=== PATIENT | male | born 1975 | race Two or more races ===

== ENCOUNTER 2021-11-17 23:10 | Emergency (ER) | payer MEDICAID, OTHER ==
[~2021-11-17] VITALS: Ht 177.8 cm; Wt 81.6 kg
--- NOTE | 2021-11-17 23:20 | NUR ---
TO ER BED 15. BIBRA39 FOR METH USE. AAOX3. AMBULATORY. BREATHING IS EVEN AND UNLABORED. CONNECTED TO MONITOR. AWAITING MD FIGUEROA
--- NOTE | 2021-11-17 23:47 | NUR ---
URINAL PROVIDED TO PT
[2021-11-18 00:16] LABS: BASOPHILS # (AUTO) 0.1 K/uL (0.0-0.2); BASOPHILS % (AUTO) 0.4 % (0.0-2.0); HEMATOCRIT 45 % (39-51); HEMOGLOBIN 15.6 g/dL (13.5-17.5); LYMPHOCYTES # (AUTO) 2.3 K/uL (0.8-4.8); LYMPHOCYTES % (AUTO) 11.1 % (20.0-44.0); MEAN CORPUSCULAR HGB CONC 35 g/dl (31.0-36.0); MEAN CORPUSCULAR VOLUME 89 fL (80-96); MONOCYTES # (AUTO) 2.4 K/uL (0.1-1.30); MONOCYTES % (AUTO) 11.7 % (2.0-12.0); NEUTROPHILS % (AUTO) 76.8 % (43.0-81.0); PLATELET COUNT (AUTO) 172 K/uL (150-450); RED BLOOD CELL COUNT(AUTO) 5.05 MIL/uL (4.5-6.0); WHITE BLOOD COUNT (AUTO) 20.9 K/uL (4.3-11.0)
[2021-11-18 00:39] LABS: ALANINE AMINOTRANSFERASE 94 U/L (12-78); ALBUMIN 4.5 g/dL (3.4-5.0); ALKALINE PHOSPHATASE 57 U/L (46-116); ASPARTATE AMINOTRANSFERASE 177 U/L (15-37); BILIRUBIN,DIRECT 0.2 mg/dL (0.0-0.2); BILIRUBIN,TOTAL 1.7 mg/dL (0.2-1.0); CALCIUM, SERUM 8.9 mg/dL (8.5-10.1); CARBON DIOXIDE 26 mmol/L (21-32); CHLORIDE 111 mmol/L (98-107); CREATININE 1.5 mg/dL (0.6-1.3); GLUCOSE 124 mg/dL (74-106); SODIUM SERUM 149 mmol/L (136-145); TOTAL PROTEIN, SERUM 8.3 g/dL (6.4-8.2); UREA NITROGEN, BLOOD 49 mg/dL (7-18)
[2021-11-18 00:57] LABS: ACETAMINOPHEN < 2 ug/ml (10-30); ALCOHOL, BLOOD < 3 mg/dL (0-0)
[2021-11-18 01:10] LABS: BILIRUBIN,URINE NEGATIVE (NEGATIVE); COLOR,URINE YELLOW (YELLOW); LEUKOCYTE ESTERASE ,URINE NEGATIVE (NEGATIVE); NITRITE, URINE NEGATIVE (NEGATIVE); PROTEIN,URINE 100 mg/dl (NEGATIVE); UGLUCOSE NEGATIVE (NEGATIVE); UROBILINOGEN,URINE 0.2 EU/dL (0.2)
[2021-11-18] MEDS ORDERED: LORAZEPAM 0.5 MG TABLET ONE (01:29)
[2021-11-18] MEDS ORDERED: LORAZEPAM 0.5 MG TABLET PO ONE (01:30)
[2021-11-18] MEDS ORDERED: IV NS 0.9% 1,000 ML BAG IV ONE ×3 (01:30→05:00)
[2021-11-18 01:31] LABS: RBC,URINE 51-80 /HPF (0-2); WBC,URINE 0-2 /HPF (0-3)
[2021-11-18 01:32] LABS: BACTERIA,URINE Few /HPF (None Seen); SQUAMOUS EPITHELIAL CELL,UR Rare /HPF (None Seen)
--- NOTE | 2021-11-18 01:44 | NUR ---
PT PULLED OUT IV LINE. SITE CLEANED AND PRESSURE MAINTAINED. MADE AWARE
--- NOTE | 2021-11-18 05:44 | NUR ---
PT CONTINIOUSLY PULLING HIS IV OUT. PT REFUSED FLUIDS.
[2021-11-18 06:43] LABS: CREATININE 1.1 mg/dL (0.6-1.3)
--- NOTE | 2021-11-18 10:45 | NUR ---
SS consult: SS Consult requested for drug abuse. The pt. is a 46-year-old male patient who came in to ED due to detoxing. Upon SS consult, the pt. is Alert & Oriented x 4 and makes poor eye contact. The pt. appears disheveled and remains calm & cooperative. Pt. denies SI/HI and denies visual hallucinations. Pt. stated he is having some auditory hallucinations (not commanding voices). The pt.'s thought process and thought content are WNL. The pt. has Depressed mood & flat affect. Pt.'s speech is WNL. RICARDO explored pt.'s living situation. Patient stated that he lives with his brother at [[id number] [place] [address]; [phone]]. SW explored pt.'s mental health Hx. Patient states he has been diagnosed with anxiety in the past and is prescribed Wellbutrin. SW explored pt.'s drug & ETOH use. Pt. states he uses Meth about once a month and alcohol occasionally. This delinquency prevention social worker provided support with motivational interviewing, along with education regarding drug & alcohol dependence, brief intervention and referral to treatment. Patient refused referral to a rehab but accepted the resources and stated he would seek treatment if he feels he needs it later. Pt. stated he is employed and is normally able to maintain a job. Per pt. he is ambulatory and independent with all his ADL's. RICARDO explored pt.'s support system. Pt. states his brother is his support system. Plan: SW provided pt. with addiction resources and pt. accepted them. Pt. stated he left his vehicle at [facility] and wants to try to get his car upon discharge. Per pt. he will then return home[[id number] [facility] [address]; [phone]]. ADDICTION RESOURCES For Drugs and Alcohol [facility] sober living Referrals For Rehabilitation once sober Address:[address] [place] [address] [facility] [address] [place] [address] Detox/residential [facility] Substance Abuse Helpline ([facility]) Outpatient, residential treatment, recovery support for youth/adults [facility] www.[facility] hospitalounseling.Redbooth [facility] [place] Teen programs for drug/alcohol education and support Min Connolly [place]. Program for adults, sliding scale provides support and education [facility] www.DigilabHead Held Highation.org [place]; Detox/residential treatment programs; transition to sober living [facility] www.cri-help.org [place]; Outpatient and residential treatment programs; transition to sober living [facility] TEL: [phone] I-ADARP [facility] [place] [facility] Skinny [place]; Outpatient education and supportive programs for teens and adults [facility] www.[facility]rec[facility].org [place]; Residential treatment and work program for females only [facility] www.[facility].Grasswire [place]: Outpatient/residential treatment program for teens and young adults [facility] www.legacy health.org [facility] Detox, inpatient, outpatient for adults and youth [facility], [facility]. [facility]; Outpatient programs and referrals to community residential programs. Alcoholics Anonymous -SFV information and meeting and scheduleswww.aa-intergroup.org Rahat https://al-anojaziel.org/ [place] support groups for family of alcoholics. Marijuana Anonymous www.madistrict6.org -sfv listing of meetings Narcotics Anonymous www.na.org SOBER LIVING RESOURCES [facility] www.soberhousing.net A non-profit agency that provides resources to recovery and sober living homes throughout [facility] Men's Sober Living Homes: A Work in ProgressBrad Josue Jenkins Recovery [facility]oc[facility], [facility] Women's Sober Living Homes: [facility] x [address]11 My New LIZ S[facility]chez [facility] Coed Sober Living Homes: [facility] Counseling--Outpatient [facility] [address] [place] [address] [place] [address] (Specializes in in-depth psychotherapy for emotional distress: anxiety, depression, interpersonal conflicts, life transitions, childhood abuse) [facility] [address] [place] [address] (Assist with solving problem marital difficulties, separation & divorce, aging parents, & grief, chronic & terminal illness) [facility] [address] [place] [address] (Deal with loss & grief, anxiety, marital difficulties) Homebound/Mental Health Services [address] [facility] [place] [address] (Provide in-home mental services to people who are incapable of leaving their homes) [facility] for Needs of the Elderly Senior Service/Resource Center [address] [place] [address] [facility] [address] [place] [address] Mental Health Services Sandra [place] [address] [place] [address] Services: Outpatient therapy for children, teens, young adults, adults, older adults, and families; Psychiatric services, medication support Psychiatric Outpatient Services [facility] Partial Hospitalization and Intensive Outpatient Program (Managed Care and [place] Only)[address] [facility]. [facility] [phone] [facility] Partial Hospitalization and Outpatient [address] [place], [place] [phone] [facility] Mental Health Center [id number] [facility]. [address] [place], [place] [phone] [facility] Partial Hospitalization and Outpatient Lxzypea43169 Shaye Ferraro, [phone] Crisis and Hotline Telephone Numbers 24-Hour service unless stated [place] Crisis Hotlines: [facility] Mental Health/Crisis Line........471.361.1062 Suicide Prevention Center (24 Hours).......[phone] Suicide Prevention Crisis Center.......[phone] (24 Hours) Assaults Against Women Hotline.........771.221.6720 (24 Hours -- [facility]) Women and Children Crisis Senior Living...........[phone] (24 Hours) Child Abuse Hotline............810.199.6664 [facility] (24 Hours)..........[phone] Alcoholics Anonymous (24 Hours)..........[phone] Cocaine Anonymous (24 Hours)............213.188.2339 Narcotics Anonymous (24 Hours)..........[phone] [address] [facility] [address], [place], [place] [address]
--- NOTE | 2021-11-18 10:53 | NUR ---
COVID TEST COLLECTED AND SENT
--- NOTE | 2021-11-18 12:35 | NUR ---
REGGIE FROM [facility] CALLED REGARDING PT COVID STATUS. WAS NOTIFIED THAT WE WILL RECIEVE A CALL BACK WITH PT BED AND ETA FOR TRANSPORT
--- NOTE | 2021-11-18 13:16 | NUR ---
PER JEANETTE PT WILL BE GOIG TO [facility] [phone] REPORT [phone] REYES SHARMA TRANSPORTATION WILL BE HERE AT 1433
--- NOTE | 2021-11-18 14:07 | NUR ---
GAVE REPORT TO MARCO FOR RANJITH [phone]
[2021-11-18 15:35] VITALS: BP 115/73
--- NOTE | 2021-11-18 15:36 | NUR ---
[facility] TRANSPORT[facility] ARRIVED, REPORT GIVEN TO SENIOR BRANCH MANAGER, PT TRANSPORTED TO [facility] IN STABLE CONDITION.
== END 2021-11-18 15:37 | disposition short-term general hospital (02) ==
LOC: ER 23:12
DX: M62.82 Rhabdomyolysis (principal); F15.10 Other stimulant abuse, uncomplicated; R79.89 Other specified abnormal findings of blood chemistry; D72.829 Elevated white blood cell count, unspecified; E87.0 Hyperosmolality and hypernatremia; E87.8 Other disorders of electrolyte and fluid balance, not elsewhere classified; Z20.822 Contact with and (suspected) exposure to COVID-19
CPT/HCPCS: 36415 ×2; 80048 ×2; 80076; 80143; 80307; 80320; 81001; 82550 ×2; 82553; 85025; 87081; 87426; 96360; 96361; 99285; C9803; J7030; G0480